=== PATIENT | male | born 1950 | race Caucasian/White ===

== ENCOUNTER 2020-10-23 13:10 | Emergency (ER) | payer MEDICARE, OTHER, SELFPAY ==
[2020-10-23 14:14] LABS: #Basophils 0.2 thou/uL (0.0-0.2); #Lymphocytes 0.8 thou/uL (1.20-3.40); #Monocytes 0.5 thou/uL (0.11-0.59); #Neutrophils 11.5 thou/uL (1.40-6.50); %Basophils 1.2 % (0.0-1.0); %Lymphocytes 6.4 % (21.0-51.0); %Monocytes 3.9 % (0.0-10.0); %Neutrophils 88.5 % (42.0-75.0); Hemoglobin 14.4 g/dL (14.0-18.0); Large Platelets SLIGHT; MDiff Complete? YES; Mean Corpuscular HGB CONC 30.5 g/dL (32.0-36.0); Mean Corpuscular Hemoglobin 27.5 pg (27.0-31.0); Mean Corpuscular Volume 90.3 fL (78.0-98.0); Mean Platelet Volume 11.3 fL (7.4-10.4); Platelet Count 106 thou/uL (130-400); Platelet Morphology Comment Appears Decreased; RBC Distribution Width 11.5 % (11.5-14.5); RBC Morphology Normal; Red Blood Cell (RBC) Count 5.22 mill/uL (4.70-6.10)
[2020-10-23 14:19] LABS: ALT (SGPT) 85 U/L (8-55); AST (SGOT) 185 U/L (5-34); Albumin 3.7 g/dL (3.4-4.8); Alkaline Phosphatase 56 U/L (40-110); Anion Gap 18 mmol/L (10-20); BUN (Urea Nitrogen) 21 mg/dL (8.4-25.7); Bilirubin, Total 1.2 mg/dL (0.2-1.2); Calc. Creatinine Clearance 0 mL/min (70-130); Calcium 8.4 mg/dL (7.8-10.44); Carbon Dioxide 24 mmol/L (23-31); Chloride 97 mmol/L (98-107); Globulin 3.2 g/dL (2.4-3.5); Glucose 286 mg/dL (80-115); Lipase 29 U/L (8-78); Potassium 3.6 mmol/L (3.5-5.1); Protein, Total 6.9 g/dL (5.8-8.1); Sodium 135 mmol/L (136-145)
[2020-10-23 14:40] LABS: CKMB 10.4 ng/mL (0-6.6)
[2020-10-23 14:44] LABS: Bilirubin Small (Negative); Blood, Urine Large (Negative); Clarity Slightly Cloudy (Clear); Glucose, Urine (Dipstick) 500 mg/dL (Negative); Ketone, Urine 40 mg/dL (Negative); Leukocyte Negative (Negative); Nitrite Negative (Negative); Protein, Urine (Dipstick) 100 mg/dL (Neg-Trace); Urobilinogen 0.2 mg/dL (Less than 2)
[2020-10-23 14:46] LABS: Specific Gravity, Urine Greater than 1.030 (1.002-1.036)
[2020-10-23 15:15] LABS: Bacteria/HPF 2+ HPF (None Seen); RBC/HPF 0-3 HPF (0-3); Squamous Epithelial 0-3 HPF (0-3); WBC/HPF 0-3 HPF (0-3)
[2020-10-23] MEDS ORDERED: Aspirin Chewable 81 MG TAB ONE (15:33)
[2020-10-23] MEDS ORDERED: Insulin Regular 300 UNITS/3 ML VIAL ONE (15:33)
[2020-10-23] MEDS ORDERED: Sodium Chloride 0.9% 1,000 ML ONE (15:33)
[2020-10-23] MEDS ORDERED: Sodium Chloride 0.9% 100 ML ONE (15:33)
[2020-10-23] MEDS ORDERED: CEFAZOLIN 1 GM VIAL ONE (15:33)
[2020-10-23 17:23] LABS: SARS-CoV-2 NAA Rapid Test Not Detected (NotDetected)
== END 2020-10-23 17:20 | disposition short-term general hospital (02) ==
LOC: MADERS 13:10
DX: E86.0 Dehydration (principal); E11.65 Type 2 diabetes mellitus with hyperglycemia; L30.4 Erythema intertrigo; R77.8 Other specified abnormalities of plasma proteins; I25.2 Old myocardial infarction; Z79.84 Long term (current) use of oral hypoglycemic drugs; Z79.82 Long term (current) use of aspirin; Z20.828 Contact with and (suspected) exposure to other viral communicable diseases
CPT/HCPCS: 0240U; 36416; 70450; 71045; 80053; 81003; 81015; 82553; 83605; 83690; 83735; 84443; 84484; 85025; 87040; 87077; 87149; 87186; 93005; 94760; 96365; 96375; 36415-59; J0690; J1815; J3490; J7050

== ENCOUNTER 2020-11-08 14:53 | Emergency (ER) | payer MEDICARE ==
[2020-11-08 15:45] LABS: #Basophils 0.1 thou/uL (0.0-0.2); #Monocytes 0.9 thou/uL (0.11-0.59); %Eosinophils 0.1 % (0.0-10.0); %Lymphocytes 7.3 % (21.0-51.0); %Monocytes 6.3 % (0.0-10.0); %Neutrophils 85.4 % (42.0-75.0); Hemoglobin 14.7 g/dL (14.0-18.0); Mean Corpuscular HGB CONC 32.2 g/dL (32.0-36.0); Mean Corpuscular Hemoglobin 29.2 pg (27.0-31.0); Mean Corpuscular Volume 90.6 fL (78.0-98.0); Mean Platelet Volume 10.3 fL (7.4-10.4); Platelet Count 174 thou/uL (130-400); RBC Distribution Width 11.9 % (11.5-14.5); Red Blood Cell (RBC) Count 5.02 mill/uL (4.70-6.10)
[2020-11-08 15:58] LABS: ALT (SGPT) 31 U/L (8-55); AST (SGOT) 26 U/L (5-34); Albumin 3.9 g/dL (3.4-4.8); Alkaline Phosphatase 65 U/L (40-110); Anion Gap 18 mmol/L (10-20); BUN (Urea Nitrogen) 8 mg/dL (8.4-25.7); Bilirubin, Total 1.2 mg/dL (0.2-1.2); CK (CPK) 94 U/L (30-200); Calc. Creatinine Clearance 0 mL/min (70-130); Calcium 8.3 mg/dL (7.8-10.44); Carbon Dioxide 19 mmol/L (23-31); Chloride 101 mmol/L (98-107); Globulin 2.9 g/dL (2.4-3.5); Glucose 220 mg/dL (80-115); Potassium 4.1 mmol/L (3.5-5.1); Protein, Total 6.8 g/dL (5.8-8.1); Sodium 134 mmol/L (136-145)
[2020-11-08 16:15] LABS: CKMB 1.5 ng/mL (0-6.6)
[2020-11-08] MEDS ORDERED: Bacitracin 1 PK ONE (17:41)
[2020-11-08 18:06] LABS: Bilirubin Small (Negative); Blood, Urine Negative (Negative); Glucose, Urine (Dipstick) Negative (Negative); Ketone, Urine 40 mg/dL (Negative); Leukocyte Negative (Negative); Nitrite Negative (Negative); Protein, Urine (Dipstick) 100 mg/dL (Neg-Trace); Specific Gravity, Urine 1.025 (1.005-1.030)
[2020-11-08 18:07] LABS: Clarity Hazy (Clear)
[2020-11-08 18:18] LABS: Bacteria/HPF Rare-Few HPF (None Seen); RBC/HPF 0-3 HPF (0-3); Squamous Epithelial 0-3 HPF (0-3); WBC/HPF 0-3 HPF (0-3)
[2020-11-08] MEDS ORDERED: Pantoprazole 40 MG VIAL ONE (18:22)
[2020-11-08] MEDS ORDERED: Cefepime 2 GM VIAL ONE (19:14)
[2020-11-08] MEDS ORDERED: Sodium Chloride 0.9% 2,000 ML ONE (19:14)
[2020-11-08] MEDS ORDERED: Lisinopril 10 MG TAB ONE (19:14)
[2020-11-08] MEDS ORDERED: Sodium Chloride 0.9% 100 ML ONE ×2 (19:14→19:33)
[2020-11-08] MEDS ORDERED: Acetaminophen 500 MG TAB ONE (19:16)
[2020-11-08] MEDS ORDERED: Sodium Chloride 0.9% 250 ML 500 ML ONE (19:33)
[2020-11-08] MEDS ORDERED: Vancomycin HCl 500 MG VIAL ONE (19:33)
== END 2020-11-08 21:05 | disposition short-term general hospital (02) ==
LOC: MADERS 14:53
DX: A41.9 Sepsis, unspecified organism (principal); L03.113 Cellulitis of right upper limb; S40.812A Abrasion of left upper arm, initial encounter; S40.811A Abrasion of right upper arm, initial encounter; S80.812A Abrasion, left lower leg, initial encounter; S80.811A Abrasion, right lower leg, initial encounter; I10 Essential (primary) hypertension; I25.2 Old myocardial infarction; W19.XXXA Unspecified fall, initial encounter
CPT/HCPCS: 70450; 80053; 81003; 81015; 82550; 82553; 83605; 84484; 85025; 87040; 87071; 87077; 87149; 87186; 96365; 96367; C9113; J0692; J3370; J3490; J7050

== ENCOUNTER 2020-12-21 17:19 | Outpatient (CLI) | payer MEDICARE ==
[2020-12-21 17:43] LABS: #Basophils 0.1 thou/uL (0.0-0.2); #Eosinphils 0.2 thou/uL (0.0-0.7); #Lymphocytes 1.8 thou/uL (1.20-3.40); #Monocytes 0.5 thou/uL (0.11-0.59); #Neutrophils 6.6 thou/uL (1.40-6.50); %Basophils 1.1 % (0.0-1.0); %Eosinophils 1.7 % (0.0-10.0); %Lymphocytes 19.6 % (21.0-51.0); %Monocytes 5.1 % (0.0-10.0); %Neutrophils 72.6 % (42.0-75.0); Hemoglobin 13.2 g/dL (14.0-18.0); Mean Corpuscular HGB CONC 31.3 g/dL (32.0-36.0); Mean Corpuscular Hemoglobin 28.5 pg (27.0-31.0); Mean Platelet Volume 8.2 fL (7.4-10.4); Platelet Count 187 thou/uL (130-400); RBC Distribution Width 13.4 % (11.5-14.5); Red Blood Cell (RBC) Count 4.65 mill/uL (4.70-6.10); White Blood Cell (WBC) Count 9.1 thou/uL (4.8-10.8)
[2020-12-21 17:49] LABS: #Basophils 0.1 thou/uL (0.0-0.2); #Eosinphils 0.1 thou/uL (0.0-0.7); #Lymphocytes 1.9 thou/uL (1.20-3.40); #Monocytes 0.4 thou/uL (0.11-0.59); #Neutrophils 6.5 thou/uL (1.40-6.50); %Basophils 0.8 % (0.0-1.0); %Eosinophils 1.4 % (0.0-10.0); %Lymphocytes 20.9 % (21.0-51.0); %Monocytes 4.6 % (0.0-10.0); %Neutrophils 72.4 % (42.0-75.0); Hemoglobin 12.3 g/dL (14.0-18.0); Mean Corpuscular HGB CONC 30.3 g/dL (32.0-36.0); Mean Corpuscular Hemoglobin 27.8 pg (27.0-31.0); Mean Corpuscular Volume 91.7 fL (78.0-98.0); Mean Platelet Volume 8.7 fL (7.4-10.4); Platelet Count 196 thou/uL (130-400); RBC Distribution Width 13.4 % (11.5-14.5); Red Blood Cell (RBC) Count 4.42 mill/uL (4.70-6.10)
[2020-12-21 17:57] LABS: ALT (SGPT) 22 U/L (8-55); AST (SGOT) 14 U/L (5-34); Albumin 4.1 g/dL (3.4-4.8); Alkaline Phosphatase 84 U/L (40-110); Anion Gap 17 mmol/L (10-20); BUN (Urea Nitrogen) 7 mg/dL (8.4-25.7); Bilirubin, Total 0.4 mg/dL (0.2-1.2); CRP (Inflammatory) 0.63 mg/dL (= or < 0.5); Calc. Creatinine Clearance 0 mL/min (70-130); Calcium 8.9 mg/dL (7.8-10.44); Carbon Dioxide 23 mmol/L (23-31); Chloride 103 mmol/L (98-107); Glucose 177 mg/dL (80-115); Potassium 4.4 mmol/L (3.5-5.1); Protein, Total 7.1 g/dL (5.8-8.1); Sodium 139 mmol/L (136-145)
[2020-12-21 17:59] LABS: ALT (SGPT) 21 U/L (8-55); AST (SGOT) 14 U/L (5-34); Albumin 4.1 g/dL (3.4-4.8); Alkaline Phosphatase 81 U/L (40-110); Anion Gap 16 mmol/L (10-20); BUN (Urea Nitrogen) 7 mg/dL (8.4-25.7); Bilirubin, Total 0.4 mg/dL (0.2-1.2); CRP (Inflammatory) 0.64 mg/dL (= or < 0.5); Calc. Creatinine Clearance 0 mL/min (70-130); Calcium 8.9 mg/dL (7.8-10.44); Carbon Dioxide 22 mmol/L (23-31); Chloride 104 mmol/L (98-107); Globulin 2.9 g/dL (2.4-3.5); Glucose 174 mg/dL (80-115); Potassium 4.4 mmol/L (3.5-5.1); Sodium 138 mmol/L (136-145)
== END 2020-12-21 17:20 | disposition home or self-care (01) ==
LOC: MADLAB 17:19
PROVIDERS: ATTEND Internal Medicine Infectious Disease
DX: A41.01 Sepsis due to Methicillin susceptible Staphylococcus aureus (principal)
CPT/HCPCS: 80053; 85025; 86140

== ENCOUNTER 2021-08-22 11:22 | Emergency (ER) | payer MEDICARE ==
[2021-08-22 12:31] LABS: #Basophils 0.1 thou/uL (0.0-0.2); #Lymphocytes 1.1 thou/uL (1.20-3.40); #Monocytes 0.5 thou/uL (0.11-0.59); #Neutrophils 6.1 thou/uL (1.40-6.50); %Basophils 1.1 % (0.0-1.0); %Lymphocytes 14.2 % (21.0-51.0); %Monocytes 6.7 % (0.0-10.0); Hemoglobin 14.5 g/dL (14.0-18.0); Mean Corpuscular HGB CONC 33.4 g/dL (32.0-36.0); Mean Corpuscular Hemoglobin 28.9 pg (27.0-31.0); Mean Corpuscular Volume 86.4 fL (78.0-98.0); Mean Platelet Volume 7.6 fL (7.4-10.4); Platelet Count 163 thou/uL (130-400); RBC Distribution Width 10.9 % (11.5-14.5); Red Blood Cell (RBC) Count 5.03 mill/uL (4.70-6.10); White Blood Cell (WBC) Count 7.8 thou/uL (4.8-10.8)
[2021-08-22 12:46] LABS: ALT (SGPT) 22 U/L (8-55); AST (SGOT) 49 U/L (5-34); Albumin 3.8 g/dL (3.4-4.8); Alkaline Phosphatase 55 U/L (40-110); Anion Gap 17 mmol/L (10-20); BUN (Urea Nitrogen) 13 mg/dL (8.4-25.7); Bilirubin, Total 0.8 mg/dL (0.2-1.2); CK (CPK) 730 U/L (30-200); Calc. Creatinine Clearance 0 mL/min (70-130); Calcium 8.6 mg/dL (7.8-10.44); Carbon Dioxide 24 mmol/L (23-31); Chloride 96 mmol/L (98-107); Globulin 3.2 g/dL (2.4-3.5); Glucose 156 mg/dL (83-110); Lipase 37 U/L (8-78); Potassium 4.4 mmol/L (3.5-5.1); Sodium 133 mmol/L (136-145)
[2021-08-22 14:01] LABS: Bilirubin Small (Negative); Blood, Urine Trace (Negative); Glucose, Urine (Dipstick) Negative (Negative); Ketone, Urine 40 mg/dL (Negative); Leukocyte Small (Negative); Nitrite Negative (Negative); Protein, Urine (Dipstick) 100 mg/dL (Neg-Trace); Specific Gravity, Urine 1.025 (1.005-1.030); Urobilinogen 0.2 mg/dL (Less than 2); pH, Urine 5.5 (5.0-9.0)
[2021-08-22 14:02] LABS: Clarity Hazy (Clear)
[2021-08-22 14:10] LABS: RBC/HPF 0-3 HPF (0-3)
[2021-08-22 14:11] LABS: Bacteria/HPF Rare-Few HPF (None Seen); Squamous Epithelial 0-3 HPF (0-3)
[2021-08-22 14:12] LABS: Mucous/LPF 1+ LPF (<2+)
[2021-08-22 14:13] LABS: Amphetamine Not Detected (NotDetected); Barbiturates Screen Not Detected (NotDetected); Benzodiazepine Screen Not Detected (NotDetected); Cocaine Metabolite Screen Not Detected (NotDetected); Medtox Control Line Valid? VALID (VALID); Methadone Not Detected (NotDetected); Methamphetamine Not Detected (NotDetected); Opiate Screen Not Detected (NotDetected); Oxycodone Screen Not Detected (NotDetected); Phencyclidine (PCP) Not Detected (NotDetected); THC/Cannabinoid Screen Not Detected (NotDetected); Tricyclic Screen Not Detected (NotDetected)
[2021-08-22] MEDS ORDERED: Sodium Chloride 0.9% 100 ML ONE (14:15)
[2021-08-22] MEDS ORDERED: Azithromycin 500 MG VIAL ONE ×2 (14:15→14:25)
[2021-08-22] MEDS ORDERED: Sodium Chloride 0.9% 250 ML 250 ML ONE ×2 (14:15→14:25)
[2021-08-22] MEDS ORDERED: cefTRIAXone\\ROCEPHIN 2 GM VIAL ONE (14:15)
== END 2021-08-22 15:29 | disposition short-term general hospital (02) ==
LOC: MADERS 11:22
DX: S20.212A Contusion of left front wall of thorax, initial encounter (principal); J18.9 Pneumonia, unspecified organism; E86.0 Dehydration; I49.9 Cardiac arrhythmia, unspecified; I25.2 Old myocardial infarction; W18.30XA Fall on same level, unspecified, initial encounter; Y93.01 Activity, walking, marching and hiking
CPT/HCPCS: 70450; 80053; 80306; 81003; 81015; 82550; 82553; 83690; 84443; 84484; 85025; 87040; 87077; 87086; 87149; 87186; 93005; 96365; 96367; J0456; J0696; J3490; J7050

== ENCOUNTER 2021-08-29 13:03 | Inpatient (IN) | payer MEDICARE ==
[2021-08-29] MEDS ORDERED: FLU VACC QS2021-22(65YR UP)/PF 240 MCG/0.7 ML SYRINGE IM ONE (16:15)
[2021-08-29] MEDS ORDERED: Acetaminophen 325 MG TAB PO PRN (16:30)
[2021-08-29] MEDS ORDERED: Senokot S 8.6-50 MG TAB PO PRN (16:30)
[2021-08-29] MEDS ORDERED: Dextrose 50% Abboject 50 ML SYRINGE SLOW IVP PRN (16:38)
[2021-08-29] MEDS ORDERED: HumaLOG 300 UNITS/3 ML VIAL SC PRN (16:38)
[2021-08-29] MEDS: HumaLOG 300 UNITS/3 ML VIAL SC PRN (17:20)
[2021-08-29] MEDS: Carvedilol 12.5 MG TAB PO SCH (21:18)
[2021-08-29] MEDS: Dexamethasone 4 MG TAB PO SCH (21:18)
[2021-08-29] MEDS: metFORMIN 500 MG TAB PO SCH (21:19)
[2021-08-29] MEDS: Atorvastatin Calcium 10 MG TAB PO SCH (21:19)
[2021-08-29] MEDS: Lantus 1000 UNITS/10 ML VIAL SC SCH (21:24)
[2021-08-30] MEDS: Lantus 1000 UNITS/10 ML VIAL SC SCH ×2 (08:10→21:31)
[2021-08-30] MEDS: HumaLOG 300 UNITS/3 ML VIAL SC PRN ×3 (08:10→16:35)
[2021-08-30] MEDS: Carvedilol 12.5 MG TAB PO SCH ×2 (08:11→21:25)
[2021-08-30] MEDS: Enoxaparin Sodium 40 MG/0.4 ML SYRINGE SC SCH (08:11)
[2021-08-30] MEDS: Folic Acid 1 MG TAB PO SCH (08:11)
[2021-08-30] MEDS: Aspirin 81 mg Enteric Coated Tablet PO SCH (08:11)
[2021-08-30] MEDS: Amlodipine 5 MG TAB PO SCH (08:11)
[2021-08-30] MEDS: metFORMIN 500 MG TAB PO SCH ×3 (08:11→21:26)
[2021-08-30] MEDS: Dexamethasone 4 MG TAB PO SCH ×2 (08:11→21:26)
[2021-08-30 08:43] LABS: #Basophils 0.3 thou/uL (0.0-0.2); #Monocytes 0.6 thou/uL (0.11-0.59); #Neutrophils 10.5 thou/uL (1.40-6.50); %Basophils 2.4 % (0.0-1.0); %Lymphocytes 8.1 % (21.0-51.0); %Monocytes 4.5 % (0.0-10.0); %Neutrophils 84.9 % (42.0-75.0); Hemoglobin 14.2 g/dL (14.0-18.0); Mean Corpuscular HGB CONC 33.1 g/dL (32.0-36.0); Mean Corpuscular Hemoglobin 28.6 pg (27.0-31.0); Mean Corpuscular Volume 86.3 fL (78.0-98.0); Mean Platelet Volume 7.2 fL (7.4-10.4); Platelet Count 341 thou/uL (130-400); RBC Distribution Width 10.7 % (11.5-14.5); Red Blood Cell (RBC) Count 4.97 mill/uL (4.70-6.10); White Blood Cell (WBC) Count 12.4 thou/uL (4.8-10.8)
[2021-08-30 08:46] LABS: Anion Gap 13 mmol/L (10-20); BUN (Urea Nitrogen) 18 mg/dL (8.4-25.7); Calc. Creatinine Clearance 158 mL/min (70-130); Carbon Dioxide 29 mmol/L (23-31); Chloride 101 mmol/L (98-107); Glucose 198 mg/dL (83-110); Potassium 3.9 mmol/L (3.5-5.1); Sodium 139 mmol/L (136-145)
[2021-08-30] MEDS ORDERED: cefTRIAXone\\ROCEPHIN 2 GM VIAL IVPB SCH (12:00)
[2021-08-30] MEDS ORDERED: Calcium Carbonate 500 MG ChewTAB PO PRN (12:30)
[2021-08-30] MEDS: cefTRIAXone\\ROCEPHIN 2 GM in Sodium Chloride 0.9% 100 ML IVPB SCH (13:26)
[2021-08-30] MEDS: Atorvastatin Calcium 10 MG TAB PO SCH (21:26)
[2021-08-31] MEDS: metFORMIN 500 MG TAB PO SCH ×3 (08:05→21:22)
[2021-08-31] MEDS: Aspirin 81 mg Enteric Coated Tablet PO SCH (08:05)
[2021-08-31] MEDS: Lantus 1000 UNITS/10 ML VIAL SC SCH ×2 (08:05→21:25)
[2021-08-31] MEDS: Dexamethasone 4 MG TAB PO SCH ×2 (08:05→21:21)
[2021-08-31] MEDS: Carvedilol 12.5 MG TAB PO SCH ×2 (08:05→21:22)
[2021-08-31] MEDS: Enoxaparin Sodium 40 MG/0.4 ML SYRINGE SC SCH (08:05)
[2021-08-31] MEDS: Folic Acid 1 MG TAB PO SCH (08:05)
[2021-08-31] MEDS: Amlodipine 5 MG TAB PO SCH (08:05)
[2021-08-31] MEDS: HumaLOG 300 UNITS/3 ML VIAL SC PRN ×3 (08:06→16:38)
[2021-08-31] MEDS: cefTRIAXone\\ROCEPHIN 2 GM in Sodium Chloride 0.9% 100 ML IVPB SCH (13:05)
[2021-08-31] MEDS: Atorvastatin Calcium 10 MG TAB PO SCH (21:22)
[2021-09-01] MEDS: Dexamethasone 4 MG TAB PO SCH ×2 (08:50→21:37)
[2021-09-01] MEDS: Folic Acid 1 MG TAB PO SCH (08:50)
[2021-09-01] MEDS: Aspirin 81 mg Enteric Coated Tablet PO SCH (08:50)
[2021-09-01] MEDS: Carvedilol 12.5 MG TAB PO SCH ×2 (08:50→21:36)
[2021-09-01] MEDS: Amlodipine 5 MG TAB PO SCH (08:50)
[2021-09-01] MEDS: Enoxaparin Sodium 40 MG/0.4 ML SYRINGE SC SCH (08:50)
[2021-09-01] MEDS: metFORMIN 500 MG TAB PO SCH ×3 (09:18→21:36)
[2021-09-01] MEDS: Lantus 1000 UNITS/10 ML VIAL SC SCH ×2 (09:18→21:38)
[2021-09-01] MEDS: cefTRIAXone\\ROCEPHIN 2 GM in Sodium Chloride 0.9% 100 ML IVPB SCH (14:04)
[2021-09-01] MEDS: Nystatin Cream 15 GM TUBE TOP SCH ×2 (15:01→21:37)
[2021-09-01] MEDS: Atorvastatin Calcium 10 MG TAB PO SCH (21:36)
[2021-09-02] MEDS: Enoxaparin Sodium 40 MG/0.4 ML SYRINGE SC SCH (08:21)
[2021-09-02] MEDS: Carvedilol 12.5 MG TAB PO SCH ×2 (08:22→21:47)
[2021-09-02] MEDS: Dexamethasone 4 MG TAB PO SCH ×2 (08:22→21:48)
[2021-09-02] MEDS: Amlodipine 5 MG TAB PO SCH (08:22)
[2021-09-02] MEDS: Aspirin 81 mg Enteric Coated Tablet PO SCH (08:22)
[2021-09-02] MEDS: metFORMIN 500 MG TAB PO SCH ×3 (08:22→21:48)
[2021-09-02] MEDS: Folic Acid 1 MG TAB PO SCH (08:22)
[2021-09-02] MEDS: Lantus 1000 UNITS/10 ML VIAL SC SCH ×2 (08:23→21:48)
[2021-09-02] MEDS: HumaLOG 300 UNITS/3 ML VIAL SC PRN ×2 (08:23→12:20)
[2021-09-02] MEDS: Nystatin Cream 15 GM TUBE TOP SCH ×2 (08:30→21:50)
[2021-09-02] MEDS: cefTRIAXone\\ROCEPHIN 2 GM in Sodium Chloride 0.9% 100 ML IVPB SCH (13:10)
[2021-09-02] MEDS: Atorvastatin Calcium 10 MG TAB PO SCH (21:47)
[2021-09-03] MEDS: metFORMIN 500 MG TAB PO SCH ×3 (08:19→21:57)
[2021-09-03] MEDS: Dexamethasone 4 MG TAB PO SCH ×2 (08:19→21:59)
[2021-09-03] MEDS: Amlodipine 5 MG TAB PO SCH (08:20)
[2021-09-03] MEDS: Carvedilol 12.5 MG TAB PO SCH ×2 (08:20→21:57)
[2021-09-03] MEDS: Folic Acid 1 MG TAB PO SCH (08:20)
[2021-09-03] MEDS: Enoxaparin Sodium 40 MG/0.4 ML SYRINGE SC SCH (08:21)
[2021-09-03] MEDS: Aspirin 81 mg Enteric Coated Tablet PO SCH (08:21)
[2021-09-03] MEDS: Lantus 1000 UNITS/10 ML VIAL SC SCH ×2 (08:21→22:02)
[2021-09-03] MEDS: Nystatin Cream 15 GM TUBE TOP SCH ×2 (08:24→21:57)
[2021-09-03] MEDS: cefTRIAXone\\ROCEPHIN 2 GM in Sodium Chloride 0.9% 100 ML IVPB SCH (13:32)
[2021-09-03] MEDS: Atorvastatin Calcium 10 MG TAB PO SCH (21:57)
[2021-09-04] MEDS: Carvedilol 12.5 MG TAB PO SCH ×2 (08:37→21:07)
[2021-09-04] MEDS: Dexamethasone 4 MG TAB PO SCH ×2 (08:37→21:07)
[2021-09-04] MEDS: Folic Acid 1 MG TAB PO SCH (08:37)
[2021-09-04] MEDS: Amlodipine 5 MG TAB PO SCH (08:37)
[2021-09-04] MEDS: metFORMIN 500 MG TAB PO SCH ×3 (08:38→21:07)
[2021-09-04] MEDS: Enoxaparin Sodium 40 MG/0.4 ML SYRINGE SC SCH (08:38)
[2021-09-04] MEDS: Lantus 1000 UNITS/10 ML VIAL SC SCH ×2 (08:38→21:09)
[2021-09-04] MEDS: Aspirin 81 mg Enteric Coated Tablet PO SCH (08:38)
[2021-09-04] MEDS: Nystatin Cream 15 GM TUBE TOP SCH ×2 (08:42→21:11)
[2021-09-04] MEDS: cefTRIAXone\\ROCEPHIN 2 GM in Sodium Chloride 0.9% 100 ML IVPB SCH (13:37)
[2021-09-04] MEDS: HumaLOG 300 UNITS/3 ML VIAL SC PRN (17:00)
[2021-09-04] MEDS: Atorvastatin Calcium 10 MG TAB PO SCH (21:07)
[2021-09-05 05:31] LABS: #Basophils 0.4 thou/uL (0.0-0.2); #Lymphocytes 0.9 thou/uL (1.20-3.40); #Monocytes 0.5 thou/uL (0.11-0.59); #Neutrophils 13.7 thou/uL (1.40-6.50); %Basophils 2.9 % (0.0-1.0); %Eosinophils 0.1 % (0.0-10.0); %Lymphocytes 5.9 % (21.0-51.0); %Monocytes 3.3 % (0.0-10.0); %Neutrophils 87.9 % (42.0-75.0); Mean Corpuscular HGB CONC 33.8 g/dL (32.0-36.0); Mean Corpuscular Hemoglobin 29.3 pg (27.0-31.0); Mean Corpuscular Volume 86.7 fL (78.0-98.0); Mean Platelet Volume 7.9 fL (7.4-10.4); Platelet Count 206 thou/uL (130-400); RBC Distribution Width 11.4 % (11.5-14.5); Red Blood Cell (RBC) Count 5.11 mill/uL (4.70-6.10); White Blood Cell (WBC) Count 15.6 thou/uL (4.8-10.8)
[2021-09-05 05:47] LABS: Anion Gap 14 mmol/L (10-20); BUN (Urea Nitrogen) 27 mg/dL (8.4-25.7); Calc. Creatinine Clearance 188 mL/min (70-130); Calcium 8.6 mg/dL (7.8-10.44); Carbon Dioxide 23 mmol/L (23-31); Chloride 107 mmol/L (98-107); Glucose 66 mg/dL (83-110); Potassium 4.3 mmol/L (3.5-5.1); Sodium 140 mmol/L (136-145)
[2021-09-05] MEDS: Enoxaparin Sodium 40 MG/0.4 ML SYRINGE SC SCH (08:56)
[2021-09-05] MEDS: Nystatin Cream 15 GM TUBE TOP SCH ×2 (08:56→20:55)
[2021-09-05] MEDS: Dexamethasone 4 MG TAB PO SCH (08:57)
[2021-09-05] MEDS: Amlodipine 5 MG TAB PO SCH (08:57)
[2021-09-05] MEDS: metFORMIN 500 MG TAB PO SCH ×3 (08:57→20:55)
[2021-09-05] MEDS: Folic Acid 1 MG TAB PO SCH (08:57)
[2021-09-05] MEDS: Aspirin 81 mg Enteric Coated Tablet PO SCH (08:57)
[2021-09-05] MEDS: Carvedilol 12.5 MG TAB PO SCH ×2 (08:57→20:55)
[2021-09-05] MEDS: Lantus 1000 UNITS/10 ML VIAL SC SCH ×2 (08:58→20:56)
[2021-09-05] MEDS: cefTRIAXone\\ROCEPHIN 2 GM in Sodium Chloride 0.9% 100 ML IVPB SCH (12:59)
[2021-09-05] MEDS: Atorvastatin Calcium 10 MG TAB PO SCH (20:55)
[2021-09-06] MEDS: Enoxaparin Sodium 40 MG/0.4 ML SYRINGE SC SCH (09:43)
[2021-09-06] MEDS: Amlodipine 5 MG TAB PO SCH (09:43)
[2021-09-06] MEDS: Aspirin 81 mg Enteric Coated Tablet PO SCH (09:43)
[2021-09-06] MEDS: metFORMIN 500 MG TAB PO SCH ×2 (09:43→15:26)
[2021-09-06] MEDS: Folic Acid 1 MG TAB PO SCH (09:43)
[2021-09-06] MEDS: Carvedilol 12.5 MG TAB PO SCH ×2 (09:44→20:42)
[2021-09-06] MEDS: Nystatin Cream 15 GM TUBE TOP SCH ×2 (09:45→20:48)
[2021-09-06] MEDS: cefTRIAXone\\ROCEPHIN 2 GM in Sodium Chloride 0.9% 100 ML IVPB SCH (13:18)
[2021-09-06] MEDS: Atorvastatin Calcium 10 MG TAB PO SCH (20:42)
[2021-09-07 07:17] LABS: Mean Corpuscular HGB CONC 33.2 g/dL (32.0-36.0); Mean Corpuscular Hemoglobin 28.7 pg (27.0-31.0); Mean Corpuscular Volume 86.4 fL (78.0-98.0); Mean Platelet Volume 8.3 fL (7.4-10.4); Platelet Count 165 thou/uL (130-400); RBC Distribution Width 11.4 % (11.5-14.5); Red Blood Cell (RBC) Count 5.21 mill/uL (4.70-6.10)
[2021-09-07 07:37] LABS: Anion Gap 15 mmol/L (10-20); BUN (Urea Nitrogen) 27 mg/dL (8.4-25.7); Calc. Creatinine Clearance 159 mL/min (70-130); Calcium 8.4 mg/dL (7.8-10.44); Carbon Dioxide 25 mmol/L (23-31); Chloride 104 mmol/L (98-107); Glucose 119 mg/dL (83-110); Potassium 4.4 mmol/L (3.5-5.1); Sodium 140 mmol/L (136-145)
[2021-09-07] MEDS: Carvedilol 12.5 MG TAB PO SCH ×2 (08:52→20:29)
[2021-09-07] MEDS: Folic Acid 1 MG TAB PO SCH (08:52)
[2021-09-07] MEDS: Enoxaparin Sodium 40 MG/0.4 ML SYRINGE SC SCH (08:52)
[2021-09-07] MEDS: Amlodipine 5 MG TAB PO SCH (08:53)
[2021-09-07] MEDS: Nystatin Cream 15 GM TUBE TOP SCH ×2 (08:53→20:31)
[2021-09-07] MEDS: Aspirin 81 mg Enteric Coated Tablet PO SCH (08:53)
[2021-09-07] MEDS: Atorvastatin Calcium 10 MG TAB PO SCH (20:30)
[2021-09-08] MEDS: Amlodipine 5 MG TAB PO SCH (08:30)
[2021-09-08] MEDS: Carvedilol 12.5 MG TAB PO SCH ×2 (08:30→20:10)
[2021-09-08] MEDS: Enoxaparin Sodium 40 MG/0.4 ML SYRINGE SC SCH (08:30)
[2021-09-08] MEDS: Aspirin 81 mg Enteric Coated Tablet PO SCH (08:30)
[2021-09-08] MEDS: Folic Acid 1 MG TAB PO SCH (08:30)
[2021-09-08] MEDS: Nystatin Cream 15 GM TUBE TOP SCH ×2 (08:31→20:10)
[2021-09-08] MEDS: Atorvastatin Calcium 10 MG TAB PO SCH (20:10)
[2021-09-09] MEDS: Aspirin 81 mg Enteric Coated Tablet PO SCH (08:14)
[2021-09-09] MEDS: Amlodipine 5 MG TAB PO SCH (08:14)
[2021-09-09] MEDS: Folic Acid 1 MG TAB PO SCH (08:14)
[2021-09-09] MEDS: Nystatin Cream 15 GM TUBE TOP SCH ×2 (08:14→21:02)
[2021-09-09] MEDS: Enoxaparin Sodium 40 MG/0.4 ML SYRINGE SC SCH (08:14)
[2021-09-09] MEDS: Carvedilol 12.5 MG TAB PO SCH ×2 (08:14→20:56)
[2021-09-09] MEDS: Atorvastatin Calcium 10 MG TAB PO SCH (20:56)
[2021-09-10] MEDS: Amlodipine 5 MG TAB PO SCH (08:30)
[2021-09-10] MEDS: Carvedilol 12.5 MG TAB PO SCH ×2 (08:31→21:47)
[2021-09-10] MEDS: Nystatin Cream 15 GM TUBE TOP SCH ×2 (08:32→21:50)
[2021-09-10] MEDS: Enoxaparin Sodium 40 MG/0.4 ML SYRINGE SC SCH (08:32)
[2021-09-10] MEDS: Folic Acid 1 MG TAB PO SCH (08:32)
[2021-09-10] MEDS: Aspirin 81 mg Enteric Coated Tablet PO SCH (08:32)
[2021-09-10] MEDS: Atorvastatin Calcium 10 MG TAB PO SCH (21:47)
[2021-09-11] MEDS: Aspirin 81 mg Enteric Coated Tablet PO SCH (08:59)
[2021-09-11] MEDS: metFORMIN 500 MG TAB PO SCH ×2 (08:59→17:01)
[2021-09-11] MEDS: Amlodipine 5 MG TAB PO SCH (08:59)
[2021-09-11] MEDS: Folic Acid 1 MG TAB PO SCH (08:59)
[2021-09-11] MEDS: Carvedilol 12.5 MG TAB PO SCH ×2 (08:59→20:19)
[2021-09-11] MEDS: Enoxaparin Sodium 40 MG/0.4 ML SYRINGE SC SCH (09:01)
[2021-09-11] MEDS: HumaLOG 300 UNITS/3 ML VIAL SC PRN ×3 (09:01→17:03)
[2021-09-11] MEDS: Nystatin Cream 15 GM TUBE TOP SCH ×2 (09:03→20:19)
[2021-09-11] MEDS: Atorvastatin Calcium 10 MG TAB PO SCH (20:19)
[2021-09-12] MEDS: Enoxaparin Sodium 40 MG/0.4 ML SYRINGE SC SCH (08:48)
[2021-09-12] MEDS: Amlodipine 5 MG TAB PO SCH (08:48)
[2021-09-12] MEDS: Folic Acid 1 MG TAB PO SCH (08:48)
[2021-09-12] MEDS: metFORMIN 500 MG TAB PO SCH ×2 (08:48→17:03)
[2021-09-12] MEDS: Aspirin 81 mg Enteric Coated Tablet PO SCH (08:48)
[2021-09-12] MEDS: Carvedilol 12.5 MG TAB PO SCH ×2 (08:49→21:03)
[2021-09-12] MEDS: HumaLOG 300 UNITS/3 ML VIAL SC PRN ×2 (08:49→12:50)
[2021-09-12] MEDS: Nystatin Cream 15 GM TUBE TOP SCH ×2 (08:50→21:04)
[2021-09-12] MEDS: Atorvastatin Calcium 10 MG TAB PO SCH (21:03)
[2021-09-13] MEDS: metFORMIN 500 MG TAB PO SCH ×2 (08:27→17:06)
[2021-09-13] MEDS: Folic Acid 1 MG TAB PO SCH (08:27)
[2021-09-13] MEDS: Nystatin Cream 15 GM TUBE TOP SCH ×2 (08:27→21:19)
[2021-09-13] MEDS: Carvedilol 12.5 MG TAB PO SCH ×2 (08:27→21:18)
[2021-09-13] MEDS: Enoxaparin Sodium 40 MG/0.4 ML SYRINGE SC SCH (08:27)
[2021-09-13] MEDS: Aspirin 81 mg Enteric Coated Tablet PO SCH (08:27)
[2021-09-13] MEDS: Amlodipine 5 MG TAB PO SCH (08:27)
[2021-09-13] MEDS: HumaLOG 300 UNITS/3 ML VIAL SC PRN ×3 (08:31→17:07)
[2021-09-13] MEDS: Atorvastatin Calcium 10 MG TAB PO SCH (21:18)
[2021-09-14 06:20] LABS: #Basophils 0.1 thou/uL (0.0-0.2); #Eosinphils 0.1 thou/uL (0.0-0.7); #Lymphocytes 1.5 thou/uL (1.20-3.40); #Monocytes 0.5 thou/uL (0.11-0.59); #Neutrophils 4.4 thou/uL (1.40-6.50); %Basophils 1.1 % (0.0-1.0); %Eosinophils 1.5 % (0.0-10.0); %Lymphocytes 22.3 % (21.0-51.0); %Monocytes 7.9 % (0.0-10.0); %Neutrophils 67.3 % (42.0-75.0); Hemoglobin 13.4 g/dL (14.0-18.0); Mean Corpuscular HGB CONC 34.2 g/dL (32.0-36.0); Mean Corpuscular Hemoglobin 29.1 pg (27.0-31.0); Mean Corpuscular Volume 85.3 fL (78.0-98.0); Mean Platelet Volume 8.5 fL (7.4-10.4); Platelet Count 105 thou/uL (130-400); Platelet Morphology Comment Appears Decreased; RBC Distribution Width 11.8 % (11.5-14.5); Red Blood Cell (RBC) Count 4.58 mill/uL (4.70-6.10); White Blood Cell (WBC) Count 6.6 thou/uL (4.8-10.8)
[2021-09-14 06:22] LABS: Anion Gap 14 mmol/L (10-20); BUN (Urea Nitrogen) 10 mg/dL (8.4-25.7); Calc. Creatinine Clearance 172 mL/min (70-130); Calcium 9.1 mg/dL (7.8-10.44); Carbon Dioxide 26 mmol/L (23-31); Chloride 103 mmol/L (98-107); Glucose 178 mg/dL (83-110); Potassium 4.1 mmol/L (3.5-5.1); Sodium 139 mmol/L (136-145)
[2021-09-14] MEDS: Carvedilol 12.5 MG TAB PO SCH ×2 (08:31→20:55)
[2021-09-14] MEDS: Amlodipine 5 MG TAB PO SCH (08:32)
[2021-09-14] MEDS: Nystatin Cream 15 GM TUBE TOP SCH ×2 (08:32→20:55)
[2021-09-14] MEDS: Aspirin 81 mg Enteric Coated Tablet PO SCH (08:32)
[2021-09-14] MEDS: metFORMIN 500 MG TAB PO SCH ×2 (08:32→17:25)
[2021-09-14] MEDS: Folic Acid 1 MG TAB PO SCH (08:32)
[2021-09-14] MEDS: Enoxaparin Sodium 40 MG/0.4 ML SYRINGE SC SCH (08:32)
[2021-09-14] MEDS: HumaLOG 300 UNITS/3 ML VIAL SC PRN (09:01)
[2021-09-14] MEDS: Atorvastatin Calcium 10 MG TAB PO SCH (20:55)
[2021-09-15] MEDS: metFORMIN 500 MG TAB PO SCH ×2 (09:09→17:07)
[2021-09-15] MEDS: Aspirin 81 mg Enteric Coated Tablet PO SCH (09:09)
[2021-09-15] MEDS: Amlodipine 5 MG TAB PO SCH (09:09)
[2021-09-15] MEDS: Folic Acid 1 MG TAB PO SCH (09:10)
[2021-09-15] MEDS: Enoxaparin Sodium 40 MG/0.4 ML SYRINGE SC SCH (09:10)
[2021-09-15] MEDS: HumaLOG 300 UNITS/3 ML VIAL SC PRN ×2 (09:10→12:15)
[2021-09-15] MEDS: Nystatin Cream 15 GM TUBE TOP SCH ×2 (09:10→20:29)
[2021-09-15] MEDS: Carvedilol 12.5 MG TAB PO SCH ×2 (09:10→20:29)
[2021-09-15] MEDS: Atorvastatin Calcium 10 MG TAB PO SCH (20:28)
[2021-09-16] MEDS: HumaLOG 300 UNITS/3 ML VIAL SC PRN ×3 (09:15→17:18)
[2021-09-16] MEDS: Carvedilol 12.5 MG TAB PO SCH ×2 (09:16→21:17)
[2021-09-16] MEDS: Enoxaparin Sodium 40 MG/0.4 ML SYRINGE SC SCH (09:16)
[2021-09-16] MEDS: metFORMIN 500 MG TAB PO SCH ×2 (09:16→17:18)
[2021-09-16] MEDS: Aspirin 81 mg Enteric Coated Tablet PO SCH (09:16)
[2021-09-16] MEDS: Nystatin Cream 15 GM TUBE TOP SCH ×2 (09:17→21:18)
[2021-09-16] MEDS: Folic Acid 1 MG TAB PO SCH (09:17)
[2021-09-16] MEDS: Amlodipine 5 MG TAB PO SCH (09:17)
[2021-09-16] MEDS: Atorvastatin Calcium 10 MG TAB PO SCH (21:18)
[2021-09-17] MEDS: Carvedilol 12.5 MG TAB PO SCH ×2 (08:42→20:28)
[2021-09-17] MEDS: Enoxaparin Sodium 40 MG/0.4 ML SYRINGE SC SCH (08:42)
[2021-09-17] MEDS: Amlodipine 5 MG TAB PO SCH (08:42)
[2021-09-17] MEDS: Aspirin 81 mg Enteric Coated Tablet PO SCH (08:43)
[2021-09-17] MEDS: Folic Acid 1 MG TAB PO SCH (08:43)
[2021-09-17] MEDS: metFORMIN 500 MG TAB PO SCH ×2 (08:43→17:03)
[2021-09-17] MEDS: Nystatin Cream 15 GM TUBE TOP SCH ×2 (08:44→20:29)
[2021-09-17] MEDS: HumaLOG 300 UNITS/3 ML VIAL SC PRN ×2 (12:15→17:04)
[2021-09-17] MEDS: Atorvastatin Calcium 10 MG TAB PO SCH (20:28)
[2021-09-18] MEDS: Aspirin 81 mg Enteric Coated Tablet PO SCH (08:53)
[2021-09-18] MEDS: Nystatin Cream 15 GM TUBE TOP SCH ×2 (08:53→20:42)
[2021-09-18] MEDS: Carvedilol 12.5 MG TAB PO SCH ×2 (08:53→20:42)
[2021-09-18] MEDS: Folic Acid 1 MG TAB PO SCH (08:53)
[2021-09-18] MEDS: metFORMIN 500 MG TAB PO SCH ×2 (08:53→17:28)
[2021-09-18] MEDS: Amlodipine 5 MG TAB PO SCH (08:53)
[2021-09-18] MEDS: HumaLOG 300 UNITS/3 ML VIAL SC PRN ×2 (12:20→17:28)
[2021-09-18] MEDS: Atorvastatin Calcium 10 MG TAB PO SCH (20:41)
[2021-09-19 05:31] LABS: #Basophils 0.1 thou/uL (0.0-0.2); #Eosinphils 0.2 thou/uL (0.0-0.7); #Lymphocytes 1.5 thou/uL (1.20-3.40); #Monocytes 0.4 thou/uL (0.11-0.59); #Neutrophils 4.5 thou/uL (1.40-6.50); %Basophils 1.7 % (0.0-1.0); %Eosinophils 2.6 % (0.0-10.0); %Lymphocytes 22.4 % (21.0-51.0); %Monocytes 5.3 % (0.0-10.0); %Neutrophils 68.1 % (42.0-75.0); Hemoglobin 13.2 g/dL (14.0-18.0); Mean Corpuscular HGB CONC 33.8 g/dL (32.0-36.0); Mean Corpuscular Hemoglobin 29.1 pg (27.0-31.0); Mean Platelet Volume 7.3 fL (7.4-10.4); Platelet Count 106 thou/uL (130-400); RBC Distribution Width 11.9 % (11.5-14.5); Red Blood Cell (RBC) Count 4.53 mill/uL (4.70-6.10); White Blood Cell (WBC) Count 6.6 thou/uL (4.8-10.8)
[2021-09-19 07:19] VITALS: BP 168/90; TEMP 97.7
[2021-09-19] MEDS: metFORMIN 500 MG TAB PO SCH (09:03)
[2021-09-19] MEDS: Aspirin 81 mg Enteric Coated Tablet PO SCH (09:03)
[2021-09-19] MEDS: Folic Acid 1 MG TAB PO SCH (09:03)
[2021-09-19] MEDS: Carvedilol 12.5 MG TAB PO SCH (09:03)
[2021-09-19] MEDS: HumaLOG 300 UNITS/3 ML VIAL SC PRN (09:03)
[2021-09-19] MEDS: Amlodipine 5 MG TAB PO SCH (09:03)
[2021-09-19] MEDS: Nystatin Cream 15 GM TUBE TOP SCH (09:04)
[2021-09-19 11:49] VITALS: BMI 38.0
[2021-09-20] MEDS ORDERED: Amlodipine 5 MG TAB PO SCH (09:00)
== END 2021-09-19 15:45 | disposition home or self-care (01) | DRG 947 ==
LOC: MADMS 15:24
PROVIDERS: ADMIT Family Medicine; ATTEND Family Medicine
DX: R53.1 Weakness (principal); J18.9 Pneumonia, unspecified organism; I50.42 Chronic combined systolic (congestive) and diastolic (congestive) heart failure; J96.11 Chronic respiratory failure with hypoxia; R53.81 Other malaise; G47.33 Obstructive sleep apnea (adult) (pediatric); I25.10 Atherosclerotic heart disease of native coronary artery without angina pectoris; I11.0 Hypertensive heart disease with heart failure; Z66 Do not resuscitate; E78.5 Hyperlipidemia, unspecified; D69.6 Thrombocytopenia, unspecified; E66.01 Morbid (severe) obesity due to excess calories; K59.00 Constipation, unspecified; E11.649 Type 2 diabetes mellitus with hypoglycemia without coma; I44.30 Unspecified atrioventricular block; Z87.01 Personal history of pneumonia (recurrent); Z86.16 Personal history of COVID-19; Z95.0 Presence of cardiac pacemaker; Z79.899 Other long term (current) drug therapy; Z79.84 Long term (current) use of oral hypoglycemic drugs; Z98.2 Presence of cerebrospinal fluid drainage device; Z79.4 Long term (current) use of insulin; Z90.49 Acquired absence of other specified parts of digestive tract; Z80.9 Family history of malignant neoplasm, unspecified; Z68.38 Body mass index [BMI] 38.0-38.9, adult
CPT/HCPCS: 36415; 36416; 71045; 80048; 85025; 85027; 87040; J0696; J1610; J1650; J1815; J3490; J8540